=== PATIENT | male | born 1960 | race Caucasian/White ===

== ENCOUNTER 2017-02-03 17:36 | Inpatient (IN) | payer OTHER ==
[~2017-02-03] VITALS: Ht 180.3 cm; Wt 101.5 kg
[2017-02-03] VITALS (15 sets, daily range): BP systolic 114–142; BP diastolic 69–108
--- NOTE | ~2017-02-03 | EEG ---
[facility] [place] [address] ELECTROENCEPHALOGRAM Name: ELDER LOWE Room #: 455-P [facility] IN M.R.#: [id number] Admission: 02/03/17 Attend Phys: Morris Gallo MD Discharge: 02/05/17 Date of : 60 Report #: [id number] THIS REPORT FOR: //name// CC: FAM unknown Morris Gallo DATE OF SERVICE: 02/05/2017 REASON FOR STUDY: This patient is being evaluated for the possibility of seizure. INTERPRETATION: EEG was done immediately after this patient had one of his episode. It was done by placing the electrodes by standard 10-20 system of electrode placement. Both referential and sequential montages were used for recording. Background activity is about 10-11 hertz and 30-40 microvolt. This patient became drowsy that is associated with bilateral slowing and a few vertex sharp waves. Photic stimulation is unremarkable. Throughout the record, no active epileptiform activity was noticed. IMPRESSION: This patient's electroencephalogram does not demonstrate any clear-cut epileptiform activity. There is no significant slowing. Although EEG can be normal in a patient with seizure disorder but lack of any seizure activity or any significant slowing immediately after the patient's spell would raise the possibility of non-epileptiform event. This patient should be worked up by a video monitored EEG if clinically indicated. Attempt is being made to transfer him to a facility that have video monitored EEG is available. Thank you very much for this referral. <ELECTRONICALLY SIGNED> By: Addy Fierro MD 02/06/17 1930 1726 50 Addy Fierro MD /nt
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
--- NOTE | ~2017-02-03 | EEG ---
[facility] [place] [address] ELECTROENCEPHALOGRAM Name: ELDER LOWE Room #: 455-P [facility] IN M.R.#: [id number] Admission: 02/03/17 Attend Phys: Morris Gallo MD Discharge: 02/05/17 Date of : 60 Report #: [id number] THIS REPORT FOR: //name// CC: FAM unknown Morris Gallo DATE OF SERVICE: 02/04/2017 This patient is being evaluated for the possibility of seizure. EEG was done by placing the electrodes by standard 10-20 system of electrode placement. Both referential and sequential montages were used for recording. Background activity in this patient's EEG is about 11 Hz and 30 microvolts. This patient goes to sleep that is associated with bilateral slowing, vertex sharp waves, as well as sleep spindles. Photic stimulation is unremarkable. Throughout the record, no active epileptiform activity was noticed. IMPRESSION: This patient's EEG is within normal limits. No active epileptiform activity was noticed. Although EEG can be normal in a patient with seizure disorder, but it is unusual to have such normal EEG with no suppression of background activity after recurrent episodes of seizures including last night and this morning. <ELECTRONICALLY SIGNED> By: Addy Fierro MD 02/06/171929 20 27 Addy Fierro MD /nt
--- NOTE | ~2017-02-03 | EKG ---
[place] [address] [facility] [place] [address] ELECTROCARDIOGRAM REPORT Name: ELDER LOWE Room #: 239-P ADM IN M.R.#: [id number] Admission: 02/03/17 Attend Phys: Morris Gallo MD Discharge: Date of : 60 Report #: [id number] THIS REPORT FOR: //name// 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 MCCLURE : 1960 Requested By: Tone Ruiz Order Number: [id number] MD: Gumaro Fleming Measurements Intervals [place] Rate: 51 P: 60 NM: 179 QRS: 63 QRSD: 99 T: 53 QT: 459 QTc: 423 Interpretive Statements Sinus bradycardia Otherwise no significant abnormality Compared to ECG 04/26/2016 09:06:18 No significant change was found Electronically Signed On 02-04-2017 7:50:01 CDT by Gumaro Fleming [email or web address] <ELECTRONICALLY SIGNED> By: Gumaro Fleming MD, [facility] 02/04/17 0750 1749 1749 Gumaro Fleming MD, [facility] /EPI
--- NOTE | ~2017-02-03 | 2DMMODE ---
[facility] [place] [address] 2 D/M-MODE ECHOCARDIOGRAM Name: ELDER LOWE Room #: 455-P [facility] IN .R.#: [id number] Admission: 02/03/17 Attend Phys: Morris Gallo, Discharge: Date of : 60 Date of Service: 02/04/17 1633 Report #: [id number] THIS REPORT FOR: //name// APPROVED REPORT EXAM: Comprehensive 2D, Doppler, and color-flow Echocardiogram Patient Location: Bedside/Room 455 Blood Pressure: 147/77 mmHg HR: 45 bpm Rhythm: Bradycardia Other Information Study Quality: Adequate Indications Bradycardia, seizures. 2D Dimensions RVDd: 37.34 mm LVEF(%): 56.63 (>50%) IVSd: 9.28 (7-11mm) LVOT Diam: 25.16 (18-24mm) LVDd: 55.64 mm PWd: 10.25 (7-11mm) LVDs: 38.94 (25-40mm) Aortic Root: 39.00 mm Alonzo's LVEF: 56.63 % Volumes Left Atrial Volume (Systole) Single Plane 4CH: 50.64 mL Single Plane 2CH: 55.35 mL LA ESV Index: 26.00 mL/m2 Aortic Valve AoV Peak Tj.: 1.23 m/s AO Peak Gr.: 6.09 mmHg Mitral Valve MV PHT: 64.70 ms MV E Max Tj.: 0.74 m/s E/A Ratio: 1.2 MV A Tj.: 0.63 m/s MV Decel. Time: 223.09 ms TDI E/Lateral E': 5.00 E/Medial E': 7.[address] [facility] [place] [address] 2 D/M-MODE ECHOCARDIOGRAM Name: ELDER LOWE Room #: 455-P [facility] IN ..#: [id number] Admission: 02/03/17 Attend Phys: Morris Gallo, Discharge: Date of : 60 Date of Service: 02/04/17 1633 Report #: [id number] Pulmonary Valve PV Peak Tj.: 0.91 m/s PV Peak Gr.: 3.33 mmHg Tricuspid Valve TR Peak Tj.: 2.60 m/s RAP Estimate: 5.00 mmHg TR Peak Gr.: 27.02 mmHg RVSP: 32.00 mmHg Left Ventricle The left ventricle is normal size. There is normal LV segmental wall motion. There is normal left ventricular wall thickness. The left ventricular systolic function is normal. LVEF is 55%. The left ventricular diastolic function is normal. Right Ventricle The right ventricle is normal size. The right ventricular systolic function is normal. Atria The left atrium size is normal. The right atrium size is normal. Aortic Valve The aortic valve is normal in structure. No aortic regurgitation is present. There is no aortic valvular stenosis. Mitral Valve The mitral valve is normal in structure. Mild mitral regurgitation. Tricuspid Valve The tricuspid valve is normal in structure. There is mild tricuspid regurgitation. The right atrial pressure is estimated at 5 mmHg. There is mild pulmonary hypertension with an estimated PAP of 32mmHg. Pulmonic Valve The pulmonary valve is normal in structure. There is no pulmonic valvular regurgitation. Great Vessels Aortic root is mildly dilated. Ascending aorta is not well visualized. IVC is normal in size and collapses >50% with inspiration. Pericardium There is no pericardial effusion. [facility] [address] [place] [address] 2 D/M-MODE ECHOCARDIOGRAM Name: ELDER LOWE Room #: 455-P [facility] IN .R.#: [id number] Admission: 02/03/17 Attend Phys: Morris Gallo, Discharge: Date of : 60 Date of Service: 02/04/171632 Report #: [id number] <Conclusion> 1. Normal echocardiogram with Doppler EF 55% 2. Structural valve disease was absent. No significant regurgitant or stenotic lesions. 3. No pericardial effusion <ELECTRONICALLY SIGNED> By: Gumaro Fleming MD, [facility] 02/04/171632 32 1633 Gumaro Fleming MD, FACC /INF
[~2017-02-03 17:36] MED LIST: ANTIVERT25 MG PO; OMEPRAZOLE 20 M20 M1 PO; XANAX 0.5 MG0.5 MG PO; ZOLOFT50 MG PO
[2017-02-03] MEDS ORDERED: NEURONTIN 300300 M1 PO (17:38)
[2017-02-03] MEDS ORDERED: BRIVIACT50 MG PO (17:38)
[2017-02-03 18:01] LABS: ABSOLUTE NEUTROPHILS 5.4 thou/uL (1.4-8.2); BASOPHILS 0.2 % (0.0-2.0); EOSINOPHILS 2.4 % (0.0-3.0); HEMATOCRIT 40.5 % (42.0-52.0); HEMOGLOBIN 14.1 gm/dL (14.0-18.0); LYMPHOCYTES 20.5 % (24.0-44.0); MCH 31.4 pg (26.0-34.0); MCHC 34.7 g/dL (28.0-37.0); MCV 90.5 fL (80.0-100.0); MONOCYTES 4.4 % (1.0-8.0); PLATELET COUNT 201 thou/uL (150-400); POLYS 72.5 % (36.0-66.0); RBC 4.48 mil/uL (4.50-6.00); RDW 14.1 % (10.5-14.5); WBC 7.4 thou/uL (4.0-11.0)
[2017-02-03 18:03] LABS: MANUAL DIFF NO
[2017-02-03 18:09] LABS: CALCIUM 9.2 mg/dL (8.5-10.1); POTASSIUM 3.6 mmol/L (3.5-5.1)
[2017-02-03 18:14] LABS: ALBUMIN 4.1 g/dL (3.4-5.0); TOTAL BILIRUBIN 0.6 mg/dL (<0.1-1.0); TOTAL PROTEIN 7.5 g/dL (6.4-8.2)
[2017-02-04] VITALS (9 sets, daily range): BP systolic 93–147; BP diastolic 46–77
[2017-02-04 03:47] LABS: HEMATOCRIT 38.6 % (42.0-52.0); HEMOGLOBIN 13.1 gm/dL (14.0-18.0); MCH 30.9 pg (26.0-34.0); MCV 90.9 fL (80.0-100.0); RBC 4.25 mil/uL (4.50-6.00); RDW 14.4 % (10.5-14.5); WBC 6.6 thou/uL (4.0-11.0)
[2017-02-04 04:38] LABS: URINE BILIRUBIN NEGATIVE (Negative); URINE BLOOD NEGATIVE (Negative); URINE COLOR YELLOW; URINE GLUCOSE-RANDOM* NEGATIVE (Negative); URINE KETONES NEGATIVE (Negative); URINE LEUKOCYTES-REFLEX NEGATIVE (Negative); URINE PROTEIN (DIPSTICK) NEGATIVE (Negative); URINE SPECIFIC GRAVITY <= 1.005 (1.003-1.035); URINE UROBILINOGEN 0.2 E.U./dl (0.2-1.0)
[2017-02-04 04:39] LABS: CALCIUM 8.7 mg/dL (8.5-10.1); CREATININE 0.9 mg/dL (0.6-1.3); POTASSIUM 4.2 mmol/L (3.5-5.1)
[2017-02-04 04:47] LABS: AMP/METHAMP Negative (Negative); BARBITURATES Negative (Negative); BENZODIAZEPINES POSITIVE (Negative); COCAINE Negative (Negative); METHADONE Negative (Negative); OPIATES POSITIVE (Negative); PCP Negative (Negative); THC POSITIVE (Negative)
[2017-02-04 09:31] LABS: TSH 0.829 uIU/mL (0.358-3.740)
[2017-02-05 04:00] VITALS: BP 122/71
[2017-02-05 06:12] LABS: HEMATOCRIT 41.2 % (42.0-52.0); HEMOGLOBIN 14.1 gm/dL (14.0-18.0); MCH 30.8 pg (26.0-34.0); MCHC 34.2 g/dL (28.0-37.0); RBC 4.57 mil/uL (4.50-6.00); RDW 14.1 % (10.5-14.5); WBC 7.4 thou/uL (4.0-11.0)
[2017-02-05 06:22] LABS: POTASSIUM 3.9 mmol/L (3.5-5.1)
[2017-02-05 07:39] VITALS: BP 132/77
[2017-02-05 11:30] VITALS: BP 140/92
[2017-02-05 17:17] VITALS: BP 120/75
== END 2017-02-05 20:15 | disposition short-term general hospital (02) | DRG 101 ==
LOC: ER 17:36 → EROBS 19:09 → ICU 19:09 → 4W 02-04 14:06
PROVIDERS: Emergency Medicine; Internal Medicine; Psychiatry & Neurology Neuromuscular Medicine
DX: G40.909 Epilepsy, unspecified, not intractable, without status epilepticus (principal); F43.10 Post-traumatic stress disorder, unspecified; F41.9 Anxiety disorder, unspecified; F32.9 Major depressive disorder, single episode, unspecified; K21.9 Gastro-esophageal reflux disease without esophagitis; R00.1 Bradycardia, unspecified; F19.90 Other psychoactive substance use, unspecified, uncomplicated; Z87.828 Personal history of other (healed) physical injury and trauma; Z80.9 Family history of malignant neoplasm, unspecified; Z83.6 Family history of other diseases of the respiratory system; Z88.0 Allergy status to penicillin
CPT/HCPCS: 10045; 10078